=== PATIENT | female | born 1960 | race Caucasian/White ===

== ENCOUNTER → 2020-02-14 07:39 | Outpatient (REF) | payer BC, SELFPAY | LOC: ANHLAB 07:39 | PROVIDERS: Visit Provider Nurse Practitioner | DX: C44.319 Basal cell carcinoma of skin of other parts of face (principal) | CPT/HCPCS: 88305; 88331 ==

== ENCOUNTER 2023-02-24 15:07 | Outpatient (NON) | payer BC, SELFPAY | END 2023-02-24 15:08 | disposition home or self-care (01) | LOC: ANHLAB 15:08 | PROVIDERS: Visit Provider Nurse Practitioner | DX: C44.319 Basal cell carcinoma of skin of other parts of face (principal) | CPT/HCPCS: 88305; 88331 ==